=== PATIENT | female | born 1945 | race Caucasian/White ===

== ENCOUNTER 2020-01-18 13:40 | Emergency (ER) | payer OTHER, SELFPAY ==
[~2020-01-18] VITALS: Ht 162.6 cm; Wt 77.1 kg
--- NOTE | 2020-01-18 13:40 | NUR ---
Patient to ER bed 8 to gown for evaluation. Side rails up.
[2020-01-18 13:42] VITALS: BP_SYST 90
[2020-01-18] MEDS ORDERED: NACL 0.9% 1,000 ML IV ONE (13:48)
--- NOTE | 2020-01-18 13:55 | NUR ---
pt arrives via bls d/t increasing SOB. pt's daughter states that she test positive for Covid 19 last week at [facility]. Pt continues to feel SOB, arrives w/ a non-reabreather mask. Current o2 sat is 94%. Lung sounds are diminished at the bases
--- NOTE | 2020-01-18 14:00 | NUR ---
# 20 gauge angiocath placed to LAC. Use of asceptic technique. Opsite placed over site. Blood return noted. Blood for lab drawn from site. Flushed with 10 cc of normal saline. No evidence of infiltration noted. Patient tolerated well.
--- NOTE | 2020-01-18 14:10 | NUR ---
NS 1l currently infusing per MD order.
[2020-01-18 14:17] LABS: BASOPHILS % (AUTO) 0.2 % (0.0-2.0); EOSINOPHILS % (AUTO) 0.1 % (0.0-4.0); HEMATOCRIT 40.6 % (36-48); HEMOGLOBIN 13.9 g/dL (12.0-16.0); LYMPHOCYTES # (AUTO) 0.9 K/uL (1.0-5.5); LYMPHOCYTES % (AUTO) 13.1 % (20.5-51.5); MEAN CORPUSCULAR HEMOGLOBIN 30 pg (27-31); MEAN CORPUSCULAR HGB CONC 34 % (32-36); MEAN CORPUSCULAR VOLUME 88 fL (79.0-98.0); MONOCYTES # (AUTO) 1.3 K/uL (0.0-1.0); NEUTROPHILS # (AUTO) 4.8 K/uL (1.8-7.7); NEUTROPHILS % (AUTO) 67.6 % (40.0-70.0); PLATELET COUNT (AUTO) 306 K/uL (130-430); RED BLOOD CELL COUNT(AUTO) 4.64 MIL/uL (4.2-6.2); WHITE BLOOD COUNT (AUTO) 7.1 K/uL (4.8-10.8)
[2020-01-18 14:27] LABS: ANION GAP 5 (5-15); CALCIUM 8.3 mg/dL (8.4-11.0); CHLORIDE 97 mmol/L (98-107); GLUCOSE 111 mg/dL (70-99); POTASSIUM 3.2 mmol/L (3.5-5.1); SODIUM SERUM 132 mmol/L (136-145); UREA NITROGEN, BLOOD 14 mg/dL (8-21)
[2020-01-18 14:31] LABS: INR 1.2 (0.8-1.2); PROTHROMBIN TIME 12.2 SECS (9.5-12.5)
[2020-01-18 14:34] LABS: ALANINE AMINOTRANSFERASE 70 U/L (12-78); ALBUMIN 2.9 g/dL (3.4-4.8); AMYLASE 48 U/L (0-100); ASPARTATE AMINOTRANSFERASE 69 U/L (10-37); LIPASE 142 U/L (73-393); TOTAL BILIRUBIN 0.7 mg/dL (0.0-1.0)
--- NOTE | 2020-01-18 14:50 | NUR ---
UA collected and sent to the lab. Addendum: 01/18/20 at 1631 by DIVINA Amendment undone in ED - 01/18/20 at 1631 by DIVINA current o2 is 88% on 3L
[2020-01-18 15:36] LABS: BILIRUBIN,URINE NEGATIVE (NEGATIVE); BLOOD, URINE 1+ (NEGATIVE); COLOR,URINE YELLOW (YELLOW); GLUCOSE,URINE NEGATIVE (NEGATIVE); KETONES,URINE NEGATIVE (NEGATIVE); LEUKOCYTE ESTERASE ,URINE NEGATIVE (NEGATIVE); NITRITE, URINE NEGATIVE (NEGATIVE); PH,URINE 6.5 (5.0-8.0); PROTEIN URINE TRACE (NEGATIVE); UROBILINOGEN,URINE 0.2 (0.2-1.0)
[2020-01-18 15:53] LABS: CLARITY/URINE SLIGHTLY HAZY (CLEAR)
--- NOTE | 2020-01-18 16:00 | NUR ---
o2 titrated to 6l NC. Current O2 sat is 93%. Will continue to monitor
[2020-01-18 16:20] LABS: BACTERIA,URINE FEW /HPF (None Seen); FINE GRANULAR CASTS,URINE 0-10 /LPF (None Seen); MUCUS,URINE None Seen /LPF (None Seen)
--- NOTE | 2020-01-18 16:31 | NUR ---
Current o2 sat is 87% on 3l NC. Will continue to monitor
--- NOTE | 2020-01-18 16:53 | NUR ---
PT'S DAUGHTER REQUESTED WE CALL FOR ANY UPDATE MIGUEL ANGEL [phone]
--- NOTE | 2020-01-18 16:55 | NUR ---
pt's current o2 sat is 90% on 3l NC.
--- NOTE | 2020-01-18 17:12 | NUR ---
spoke w/ the pt's daughter. Informed her that our ER MD recommends that the pt been on continous O2 and in quaratine for 14 days.
--- NOTE | 2020-01-18 17:44 | NUR ---
Patient given written and verbal discharge instructions and verbalizes understanding. ER MD discussed with patient the results and treatment provided. Patient in stable condition. ID arm band removed. IV catheter removed intact and dressing applied, no active bleeding. Rx of ZITHROMAX, ALBUTEROL, PREDNISONE given. Patient educated on pain management and to follow up with PMD. Pain Scale 0/10. Opportunity for questions provided and answered. Medication side effect fact sheet provided. PT RELEASED TO HER SON
[2020-01-18 17:45] VITALS: BP_SYST 97
== END 2020-01-18 17:44 | disposition home or self-care (01) ==
LOC: SED 13:40
DX: U07.1 COVID-19 (principal); R53.1 Weakness; J44.9 Chronic obstructive pulmonary disease, unspecified; E11.9 Type 2 diabetes mellitus without complications; I10 Essential (primary) hypertension
CPT/HCPCS: 36415; 36600; 71045; 80053; 81000; 82150; 82550; 82803; 82962; 83605; 83690; 84484; 85025; 85610; 85730; 86710; 87040; 93005; 99285; J7030

== ENCOUNTER 2022-11-05 13:45 | Emergency (ER) | payer OTHER ==
[~2022-11-05] VITALS: Ht 152.4 cm; Wt 78.5 kg
[2022-11-05 13:55] VITALS: BP_SYST 145; BP_SYST 89
--- NOTE | 2022-11-05 14:00 | NUR ---
Placed in room 06 . Placed on electronic device monitor, blood pressure machine and pulse oximeter. To gown for exam. Side rails up. Report given to ABDIRAHMAN CONNOLLY.
--- NOTE | 2022-11-05 14:10 | NUR ---
ER DR. JOHNSON EXAMINING PT
--- NOTE | 2022-11-05 14:51 | NUR ---
ASSESMENT PER FLOWSHEET. COMFORT MEASURES AND SUPPORTIVE CARE INITIATED. SEEN BY ERMD. IV ESTABLISHED. LAB DRAWN. EKG DONE. PCXR COMPLETE. DR. JOHNSON DISCUSSED PLAN OF CARE WITH PATIENT, PT AGREES W/ PLAN OF CARE. 02 2L N/C PLACED PER DR. JOHNSON VERBAL ORDER. DENIES ANY ACUTE DISCOMFORT AT PRESENT. AWAIT LAB RESULTS.
[2022-11-05 15:09] LABS: BASOPHILS # (AUTO) 0.1 K/uL (0.0-0.2); EOSINOPHILS # (AUTO) 0.2 K/uL (0.0-0.4); EOSINOPHILS % (AUTO) 2.2 % (0.0-4.0); HEMATOCRIT 34.5 % (36-48); HEMOGLOBIN 11.4 g/dL (12.0-16.0); LYMPHOCYTES # (AUTO) 0.7 K/uL (1.0-5.5); LYMPHOCYTES % (AUTO) 7.3 % (20.5-51.5); MEAN CORPUSCULAR HEMOGLOBIN 26 pg (27-31); MEAN CORPUSCULAR HGB CONC 33 % (32-36); MEAN CORPUSCULAR VOLUME 80 fL (79.0-98.0); MONOCYTES # (AUTO) 1.1 K/uL (0.0-1.0); NEUTROPHILS # (AUTO) 7.9 K/uL (1.8-7.7); NEUTROPHILS % (AUTO) 78.5 % (40.0-70.0); PLATELET COUNT (AUTO) 282 K/uL (130-430); RED BLOOD CELL COUNT(AUTO) 4.32 MIL/uL (4.2-6.2); RED CELL DISTRIBUTION WIDTH 19.2 % (9.0-15.0)
[2022-11-05 15:24] LABS: ANION GAP 9 (5-15); CALCIUM 8.7 mg/dL (8.4-11.0); CHLORIDE 102 mmol/L (98-107); GLUCOSE 97 mg/dL (70-99); UREA NITROGEN, BLOOD 25 mg/dL (8-21)
[2022-11-05 15:26] LABS: INR 1.2 (0.8-1.2); PROTHROMBIN TIME 12.4 SECS (9.5-12.5)
[2022-11-05 15:36] LABS: ALANINE AMINOTRANSFERASE 11 U/L (12-78); ALBUMIN 3.5 g/dL (3.4-4.8); ASPARTATE AMINOTRANSFERASE 16 U/L (10-37); FREE T4 (FREE THYROXINE) 1.8 ng/dL (0.6-1.6); THYROID STIMULATING HORMONE 3.47 uIu/mL (0.34-4.82); TOTAL BILIRUBIN 0.6 mg/dL (0.0-1.0)
[2022-11-05 15:48] VITALS: BP_SYST 154
[2022-11-05 15:49] LABS: ACETONE, SERUM NEGATIVE (NEGATIVE)
== END 2022-11-05 17:40 | disposition home or self-care (01) ==
LOC: SED 13:45
DX: R29.6 Repeated falls (principal); R53.1 Weakness; R06.02 Shortness of breath; R42 Dizziness and giddiness; J44.9 Chronic obstructive pulmonary disease, unspecified; E11.9 Type 2 diabetes mellitus without complications; I10 Essential (primary) hypertension; Z79.899 Other long term (current) drug therapy
CPT/HCPCS: 36415; 70450-TC; 71045; 76376; 80053; 82009; 82550; 82962; 83605; 84439; 84443; 84484; 85025; 85610-TC; 85730-TC; 93005; 99284

== ENCOUNTER 2023-04-10 11:10 | Emergency (ER) | payer OTHER ==
[~2023-04-10] VITALS: Ht 152.4 cm; Wt 78.5 kg
[2023-04-10] MEDS ORDERED: LEVO50CA4 PO (11:35)
[2023-04-10] MEDS ORDERED: PANT40TA45 PO (11:35)
[2023-04-10] MEDS ORDERED: GUAI120018 PO (11:35)
[2023-04-10] MEDS ORDERED: PRED10TA PO (11:35)
[2023-04-10] MEDS ORDERED: ALEN70TA27 PO (11:35)
[2023-04-10] MEDS ORDERED: LIP40 PO (11:35)
[2023-04-10] MEDS ORDERED: AMIO100T4 PO (11:35)
[2023-04-10] MEDS ORDERED: HYDR12.55 PO (11:35)
[2023-04-10] MEDS ORDERED: METF-379 PO (11:35)
[2023-04-10] MEDS ORDERED: LOSA25TA3 PO (11:35)
[2023-04-10] MEDS ORDERED: ASPI-524 PO (11:35)
[2023-04-10] MEDS ORDERED: AMLO10TA88 PO (11:35)
[2023-04-10 11:36] VITALS: BP_SYST 121; PULSE 71; RESP 20; TEMP 97; O2SAT 84
[2023-04-10] MEDS ORDERED: PEG4000S4 PO (13:54)
[2023-04-10 14:29] VITALS: BP_SYST 152; PULSE 90; RESP 18; TEMP 97.5; O2SAT 94
== END 2023-04-10 12:13 | disposition home or self-care (01) ==
LOC: SED 11:10
DX: K56.41 Fecal impaction (principal); R10.9 Unspecified abdominal pain; M25.571 Pain in right ankle and joints of right foot; M79.675 Pain in left toe(s); J44.9 Chronic obstructive pulmonary disease, unspecified; E11.9 Type 2 diabetes mellitus without complications; I10 Essential (primary) hypertension; Z79.899 Other long term (current) drug therapy
CPT/HCPCS: 74018; 99284

== ENCOUNTER 2024-04-23 16:51 | Emergency (ER) | payer OTHER ==
[~2024-04-23] VITALS: Ht 152.4 cm; Wt 54.4 kg
[~2024-04-23 16:51] MED LIST: ALEN70TA27 PO; AMIO100T4 PO; AMLO10TA88 PO; ASPI-524 PO; GUAI120018 PO; HYDR12.55 PO; LEVO50CA4 PO; LIP40 PO; LOSA-412 PO; METF-379 PO; PANT40TA45 PO; POLY17PO4 PO; PRED10TA PO
[2024-04-23 17:04] VITALS: BP_SYST 147; PULSE 109; RESP 18; TEMP 98.5; O2SAT 94
[2024-04-23 17:33] LABS: BILIRUBIN,URINE NEGATIVE (NEGATIVE); BLOOD, URINE 2+ (NEGATIVE); CLARITY/URINE CLOUDY (CLEAR); COLOR,URINE ORANGE (YELLOW); GLUCOSE,URINE TRACE (NEGATIVE); KETONES,URINE NEGATIVE (NEGATIVE); LEUKOCYTE ESTERASE ,URINE 1+ (NEGATIVE); NITRITE, URINE NEGATIVE (NEGATIVE); PH,URINE 8.5 (5.0-8.0); PROTEIN URINE 3+ (NEGATIVE)
[2024-04-23 18:01] LABS: BACTERIA,URINE MODERATE /HPF (None Seen); MUCUS,URINE None Seen /LPF (None Seen); TRIPLE PHOSPHATE CRYSTAL,UR 30-50 /HPF (None Seen); URINE AMORPHOUS PHOSPHATES 3+ /HPF (None Seen)
[2024-04-23 18:12] VITALS: BP_SYST 147; PULSE 109; RESP 18; TEMP 98.5; O2SAT 94
== END 2024-04-23 18:13 | disposition home or self-care (01) ==
LOC: SED 16:51
DX: T83.098A Other mechanical complication of other urinary catheter, initial encounter (principal); R33.8 Other retention of urine; J44.9 Chronic obstructive pulmonary disease, unspecified; I10 Essential (primary) hypertension; E11.9 Type 2 diabetes mellitus without complications; Z79.899 Other long term (current) drug therapy; Z79.2 Long term (current) use of antibiotics; Y83.8 Other surgical procedures as the cause of abnormal reaction of the patient, or of later complication, without mention of misadventure at the time of the procedure; Y92.89 Other specified places as the place of occurrence of the external cause
CPT/HCPCS: 81000; 81001; 81015; 87086; 99284